=== PATIENT | male | born 1965 | race Caucasian/White ===

== ENCOUNTER 2019-12-01 13:53 | Emergency (ER) | payer MEDICAID ==
[~2019-12-01] VITALS: Ht 180.3 cm; Wt 87.1 kg
[2019-12-01 14:00] VITALS: BP 134/94
--- NOTE | 2019-12-01 14:20 | NUR ---
[employer]: PT CALLED FOR ROOM, NO ANSWER "OUT SMOKING"
--- NOTE | 2019-12-01 14:21 | NUR ---
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
== END 2019-12-01 15:45 | disposition home or self-care (01) ==
LOC: ED 15:12
DX: K08.89 Other specified disorders of teeth and supporting structures (principal)
CPT/HCPCS: 99283